=== PATIENT | female | born 1985 | race Caucasian/White ===

== ENCOUNTER 2019-04-14 04:36 | Inpatient (IN) ==
[2019-04-14] MEDS ORDERED: Naloxone 0.4 MG/ML INJ IVP PRN (05:39)
[2019-04-14] MEDS ORDERED: Metoclopramide 10 MG/2 ML VIAL IVP PRN (05:39)
[2019-04-14] MEDS ORDERED: *HR* Nalbuphine 10 MG/ML AMPUL IVP PRN (05:39)
[2019-04-14] MEDS ORDERED: miSOPROStoL 25 MCG TABLET VG PRN (05:39)
[2019-04-14] MEDS ORDERED: Lidocaine 1% 20 ML MDV INFILT PRN (05:39)
[2019-04-14] MEDS ORDERED: Famotidine 20 MG/2 ML VIAL IVP PRN (05:39)
[2019-04-14] MEDS ORDERED: D5% in Lactated Ringers 1,000 ML IVC SCH (05:45)
[2019-04-14 06:14] LABS: Basophils # 0.1 K/mcL (0.0-0.2); Basophils % 0.4 %; Eosinophils # 0.5 K/mcL (0.0-0.6); Eosinophils % 2.1 %; Hematocrit 37.4 % (35.3-44.9); Hemoglobin 13.1 g/dL (11.5-15.4); Immature Granulocytes % 1.2 % (0-4); Lymphocytes # 4.6 K/mcL (0.6-4.6); Lymphocytes % 20.4 %; Mean Corpuscular Hemoglobin 31.3 pg (28.0-33.3); Mean Corpuscular Volume 89.5 fL (83.0-100.0); Mean Platelet Volume 10.4 fL (9.4-12.4); Monocytes # 1.7 K/mcL (0.0-1.3); Monocytes % 7.4 %; Neutrophils # 15.4 K/mcL (1.6-8.9); Platelet Count 495 K/mcL (140-400); Red Blood Count 4.18 M/mcL (3.82-4.97); Red Cell Distribution Width 14.1 % (11.5-14.5); Segmented Neutrophils % 68.5 %; White Blood Count 22.5 K/mcL (4.3-11.1)
[2019-04-14 06:29] LABS: Amphetamine Screen,Urine Negative ng/mL (Cutoff=1000); Barbiturate Screen,Urine Negative ng/mL (Cutoff=200)
[2019-04-14 06:30] LABS: Benzodiazepines Screen,Urine Negative ng/mL (Cutoff=300); Cannabinoid Screen,Urine Negative ng/mL (Cutoff = 50); Cocaine Screen,Urine Negative ng/mL (Cutoff= 300); Opiate Screen,Urine Negative ng/mL (Cutoff=300); Phencyclidine Screen,Urine Negative ng/mL (Cutoff=25)
[2019-04-14] MEDS ORDERED: Oxytocin 20 units/ LR 1000 mL 20 UNIT/1,000 ML BAG IVC SCH ×2 (09:00→21:54)
[2019-04-14] MEDS ORDERED: Bupivacaine-MPF 0.25% 10 ML VIAL EP ONE (13:23)
[2019-04-14] MEDS ORDERED: EPHEDrine 50 MG/ML VIAL IVP PRN (13:23)
[2019-04-14] MEDS ORDERED: *HR* FentaNYL (PF) 100 MCG/2 ML VIAL EP ONE (13:23)
[2019-04-14] MEDS ORDERED: *HR* FentaNYL (PF) 100 MCG/2 ML VIAL ONE (13:24)
[2019-04-14] MEDS ORDERED: Bupivacaine-MPF 0.25% 10 ML VIAL ONE (13:24)
[2019-04-14] MEDS ORDERED: Epidural Premix (fent/bupiv) 110 ML EP SCH (13:30)
[2019-04-14] MEDS ORDERED: Ringers Solution, Lactated 1,000 ML ONE ×2 (13:30→17:46)
[2019-04-14] MEDS ORDERED: Acetaminophen 325 MG TABLET PO ONE (15:56)
[2019-04-14 16:42] LABS: Hepatitis B Surface Antigen Nonreactive (Nonreactive)
[2019-04-14 16:44] LABS: Rubella IgG Antibody POSITIVE (POSITIVE); Varicella Zoster IgG Antibody Positive
[2019-04-14] MEDS ORDERED: Sennosides 8.6 MG TABLET PO PRN (21:54)
[2019-04-14] MEDS ORDERED: Measles/Mumps/Rubella Vacc 0.5 ML VIAL SQ PRN (21:54)
[2019-04-14] MEDS ORDERED: Benzocaine/Menthol 56 GM AEROSOL SPRAY TP PRN (21:54)
[2019-04-14] MEDS ORDERED: Lanolin 7 G OINT...G. TP PRN (21:54)
[2019-04-14] MEDS ORDERED: Rho Immune Globulin 1,500 UNIT SYRINGE IM PRN (21:54)
[2019-04-14] MEDS: Ibuprofen 600 MG TABLET PO SCH (23:42)
[2019-04-14] MEDS: Acetaminophen 325 MG TABLET PO SCH (23:42)
[2019-04-15 06:24] LABS: Basophils # 0.1 K/mcL (0.0-0.2); Basophils % 0.3 %; Eosinophils # 0.3 K/mcL (0.0-0.6); Eosinophils % 1.3 %; Hematocrit 33.9 % (35.3-44.9); Hemoglobin 11.6 g/dL (11.5-15.4); Immature Granulocytes % 0.7 % (0-4); Lymphocytes # 4.1 K/mcL (0.6-4.6); Lymphocytes % 17.8 %; Mean Corpuscular HGB Conc 34.2 g/dL (31.6-35.5); Mean Corpuscular Hemoglobin 31.3 pg (28.0-33.3); Mean Corpuscular Volume 91.4 fL (83.0-100.0); Mean Platelet Volume 10.6 fL (9.4-12.4); Monocytes # 1.3 K/mcL (0.0-1.3); Monocytes % 5.7 %; Neutrophils # 17.1 K/mcL (1.6-8.9); Platelet Count 433 K/mcL (140-400); Red Blood Count 3.71 M/mcL (3.82-4.97); Segmented Neutrophils % 74.2 %; White Blood Count 23.1 K/mcL (4.3-11.1)
[2019-04-15] MEDS: Acetaminophen 325 MG TABLET PO SCH (07:10)
[2019-04-15] MEDS: Ibuprofen 600 MG TABLET PO SCH (07:10)
[2019-04-15 08:25] VITALS: BP 106/59
[2019-04-15] MEDS ORDERED: Prenatal Vit/FA 1 EACH TABLET PO SCH (09:00)
== END 2019-04-15 14:35 | disposition home or self-care (01) | DRG 560 ==
LOC: 1NENULAB 04:36 → 1NENUOBS 21:33
PROVIDERS: ADMIT Obstetrics & Gynecology; ATTEND Obstetrics & Gynecology